=== PATIENT | female | born 1935 | race Caucasian/White ===

== ENCOUNTER 2016-07-03 09:48 | Emergency (ER) | payer MEDICARE, MEDICAID ==
[2016-07-03 11:32] LABS: Hematocrit 39 % (35-47); Hemoglobin 12.9 g/dl (12.0-16.0); Mean Corpuscular HGB Conc 33 g/dl (31-36); Mean Corpuscular Hemoglobin 31 pg (27-31); Mean Corpuscular Volume 94 fL (80-97); Mean Platelet Volume 8 um3 (7.4-10.4); Red Cell Distribution Width 13 % (10.5-15); White Blood Count 7.1 10^3/ul (3.5-10.8)
[2016-07-03 11:44] LABS: Albumin 3.8 g/dL (3.2-5.2); BUN/Creatinine Ratio 15.2 (8-20); Calcium 9.6 mg/dL (8.6-10.3); EGFR African American 110.5 (>60); Globulin 2.9 g/dL (2-4); Total Bilirubin 0.7 mg/dL (0.2-1.0); Total Protein 6.7 g/dL (6.4-8.9)
[2016-07-03 11:46] LABS: Troponin I 0.01 ng/mL (<0.04)
[2016-07-03 11:53] LABS: TSH (Thyroid Stimulating Horm) 2.49 mcIU/mL (0.34-5.60)
[2016-07-03 12:54] LABS: Potassium 3.9 mmol/L (3.5-5.0)
[2016-07-03 14:56] VITALS: BP 132/87
--- NOTE | 2016-07-04 07:50 | ED ---
Tad Salvador Adam, scribed for Jonathan Franklin MD on 07/03/16 at 1101 . Syncope/Near Syncope - HPI Summary HPI Summary: Pt is an 81 year old female presenting with an episode of near-syncope this morning. She states that she was standing in her kitchen when she suddenly began to feel nauseous and dizzy. She felt as if she was going to pass out so she went and sat down on the couch. She continued to feel lightheaded and she was experiencing SOB as well, so she decided to call EMS. Pt states that she has not eaten anything since 17:00 yesterday. She also c/o right knee pain that has been bothering her daily but was not any worse this morning. PMHx of spinal stenosis, sciatica, and basal cell removal. Positive Hx of smoking. - History Of Current Complaint Chief Complaint: EDSyncope Time Seen by Provider: 07/03/16 10:36 Hx Obtained From: Patient Onset/Duration: Sudden Onset, Lasting Hours, Still Present Timing: Constant Context: Unwitnessed Activity At Onset: At Rest - Standing in kitchen Associated Head Trauma: No Aggravating Factor(s): Nothing Alleviating Factor(s): Nothing Associated Signs And Symptoms: Lightheadedness, Shortness Of Breath, Other - Nausea - Allergies/Home Medications Allergies/Adverse Reactions: Allergies Allergy/AdvReac Type Severity Reaction Status Date / Time Erythromycin Allergy Severe Nausea Verified 09/29/14 11:26 Penicillins [PCN] Allergy Intermediate Rash Verified 09/29/14 11:26 Sulfa Drugs Allergy Intermediate Vomiting Verified 09/29/14 11:26 PMH/Surg Hx/FS Hx/Imm Hx Endocrine/Hematology History: Denies: Hx Diabetes Cardiovascular History: Denies: Hx Hypertension, Hx Pacemaker/ICD Musculoskeletal History: Denies: Hx Rheumatoid Arthritis, Hx Osteoporosis Sensory History: Denies: Hx Hearing Aid Psychiatric History: Denies: Hx Panic Disorder - Cancer History Hx Chemotherapy: No Hx Radiation Therapy: No - Surgical History Surgery Procedure, Year, and Place: BASAL CELL REMOVED Infectious Disease History: No Infectious Disease History: Denies: Traveled Outside the [place] in Last 30 Days - Family History Known Family History: Positive: Other - Negative FMHx of breast CA - Social History Occupation: Retired Lives: With Family - Male friend Alcohol Use: None Hx Substance Use: No Substance Use Type: Reports: None Hx Tobacco Use: Yes Smoking Status (MU): Former Smoker Review of Systems Constitutional: Negative Negative: Fever Positive: Shortness Of Breath Positive: Nausea Positive: Arthralgia - Right knee Neurological: Other - Dizziness/lightheadedness Positive: Syncope - Near (no LOC) All Other Systems Reviewed And Are Negative: Yes Physical Exam Triage Information Reviewed: Yes Vital Signs On Initial Exam: Initial Vitals Temp Pulse Resp BP Pulse Ox 98.7 F 78 16 139/123 98 07/03/16 10:03 07/03/16 10:03 07/03/16 10:03 07/03/16 10:03 07/03/16 10:03 Vital Signs Reviewed: Yes Appearance: Positive: Well-Appearing, No Pain Distress Skin: Positive: Warm, Skin Color Reflects Adequate Perfusion, Dry Head/Face: Positive: Normal Head/Face Inspection Eyes: Positive: Normal ENT: Positive: Normal ENT inspection Neck: Positive: Supple, Nontender Respiratory/Lung Sounds: Positive: Clear to Auscultation, Breath Sounds Present Cardiovascular: Positive: RRR Abdomen Description: Positive: Nontender, Soft Bowel Sounds: Positive: Present Musculoskeletal: Positive: Normal Neurological: Positive: Normal Psychiatric: Positive: Normal, Affect/Mood Appropriate - [place] Coma Scale Coma Scale Total: 15 Diagnostics - Vital Signs Vital Signs Temp Pulse Resp BP Pulse Ox 07/03/16 10:03 98.7 F 78 16 139/123 98 - Laboratory Lab Results: Lab Results 07/03/16 07/03/16 07/03/16 Range/Units 10:15 10:15 10:15 WBC 7.1 (3.5-10.8) 10^3/ul RBC 4.20 (4.0-5.4) 10^6/ul Hgb 12.9 (12.0-16.0) g/dl Hct 39 (35-47) % MCV 94 (80-97) fL MCH 31 (27-31) pg MCHC 33 (31-36) g/dl RDW 13 (10.5-15) % Plt Count 171 (150-450) 10^3/ul MPV 8 (7.4-10.4) um3 Neut % (Auto) 79.5 (38-83) % Lymph % (Auto) 11.3 L (25-47) % [place] % (Auto) 8.4 (1-9) % Eos % (Auto) 0.5 (0-6) % Baso % (Auto) 0.3 (0-2) % Absolute Neuts (auto) 5.6 (1.5-7.7) 10^3/ul Absolute Lymphs (auto) 0.8 L (1.0-4.8) 10^3/ul Absolute Monos (auto) 0.6 (0-0.8) 10^3/ul Absolute Eos (auto) 0 (0-0.6) 10^3/ul Absolute Basos (auto) 0 (0-0.2) 10^3/ul Absolute Nucleated RBC 0.01 10^3/ul Nucleated RBC % 0.2 Sodium 136 (133-145) mmol/L Potassium 3.9 (3.5-5.0) mmol/L Chloride 104 (101-111) mmol/L Carbon Dioxide 24 (22-32) mmol/L Anion Gap 8 (2-11) mmol/L BUN 10 (6-24) mg/dL Creatinine 0.66 (0.51-0.95) mg/dL Est GFR ( Amer) 110.5 (>60) Est GFR (Non-Af Amer) 86.0 (>60) BUN/Creatinine Ratio 15.2 (8-20) Glucose 106 H (70-100) mg/dL Lactic Acid 1.6 (0.5-2.0) mmol/L Calcium 9.6 (8.6-10.3) mg/dL Magnesium 2.0 (1.9-2.7) mg/dL Total Bilirubin 0.70 (0.2-1.0) mg/dL AST 26 (13-39) U/L ALT 16 (7-52) U/L Alkaline Phosphatase 78 (34-104) U/L Troponin I 0.01 (<0.04) ng/mL Total Protein 6.7 (6.4-8.9) g/dL Albumin 3.8 (3.2-5.2) g/dL Globulin 2.9 (2-4) g/dL Albumin/Globulin Ratio 1.3 (1-3) TSH 2.49 (0.34-5.60) mcIU/mL Result Diagrams: 07/03/16 10:15 07/03/16 10:15 Lab Statement: Any lab studies that have been ordered have been reviewed, and results considered in the medical decision making process. - EKG 10:09 Cardiac Rate: NL - 71 BPM EKG Rhythm: Sinus Rhythm EKG Interpretation: Nonspecific changes EKG Comparison: No Significant Change - From 09/29/14 - Additional Comments Diagnostic Additional Comments: Troponin I - 0.01 Course/Dx Course Of Treatment: Bria Barrientos presented with a C/O a near syncopal epsiode. She has had many in the past and has been diagnosed with vasovagal syncope. This morning she felt a little SOB with the episode so she called EMS to have some O2. They recommended she come here to be checked out and she reluctantly agreed. Her iniitial W/U and monitorig were negative and after she ate she felt much improved and refused to stay for a second troponin. She will be discharged. - Diagnoses Provider Diagnoses: Vasovagal near-syncope Discharge - Discharge Plan Condition: Stable Disposition: HOME Patient Education Materials: Near Syncope (ED) Referrals: Thea Kuo MD [Primary Care Provider] - Additional Instructions: Follow up with Dr. Kuo. The documentation as recorded by the Tad jones Adam accurately reflects the service I personally performed and the decisions made by me, Jonathan Franklin MD.
== END 2016-07-03 14:34 | disposition home or self-care (01) ==
LOC: ED 09:48
DX: R55 Syncope and collapse (principal); R42 Dizziness and giddiness; R06.02 Shortness of breath; R11.0 Nausea; Z87.891 Personal history of nicotine dependence
CPT/HCPCS: 36415; 80053; 83605; 83735; 84443; 84484; 85025; 93005; 99282

== ENCOUNTER 2016-09-01 10:49 | Observation (INO) | payer MEDICARE, MEDICAID ==
[2016-09-01] MEDS ORDERED: Aspirin Low Dose CHEW TAB* 81 MG PO ONE (11:20)
[2016-09-01 12:13] LABS: Hematocrit 40 % (35-47); Mean Corpuscular HGB Conc 33 g/dl (31-36); Mean Corpuscular Hemoglobin 31 pg (27-31); Mean Corpuscular Volume 93 fL (80-97); Mean Platelet Volume 7 um3 (7.4-10.4); Red Blood Count 4.26 10^6/ul (4.0-5.4); Red Cell Distribution Width 13 % (10.5-15); White Blood Count 4.3 10^3/ul (3.5-10.8)
--- NOTE | 2016-09-01 12:14 | RAD ---
HISTORY: Shortness of breath COMPARISONS: September 29, 2014 VIEWS:1: Single frontal portable view of the chest at 11:50 AM FINDINGS: LINES AND TUBES: None. CARDIOMEDIASTINAL SILHOUETTE: The cardiomediastinal silhouette is normal for portable technique. PLEURA: The costophrenic angles are sharp. No pleural abnormalities are noted. LUNG PARENCHYMA: The lungs are clear. ABDOMEN: The upper abdomen is clear. There is no subphrenic gas. BONES AND SOFT TISSUES: No bone or soft tissue abnormalities are noted. IMPRESSION: NO ACTIVE CARDIOPULMONARY DISEASE.
[2016-09-01 12:29] LABS: Albumin 4.1 g/dL (3.2-5.2); EGFR African American 114.5 (>60); EGFR Non-African American 89.1 (>60); Globulin 2.7 g/dL (2-4); Potassium 3.7 mmol/L (3.5-5.0); Total Bilirubin 0.5 mg/dL (0.2-1.0); Total Protein 6.8 g/dL (6.4-8.9)
[2016-09-01 13:05] LABS: BUN/Creatinine Ratio 17.2 (8-20)
[2016-09-01] MEDS ORDERED: Aspirin TAB* 325 MG PO ONE (13:16)
[2016-09-01 14:13] LABS: Urine Bacteria 1+ (Absent); Urine Bilirubin Negative (Negative); Urine Glucose Negative (Negative); Urine Nitrite Positive (Negative)
[2016-09-01] MEDS ORDERED: cefTRIAXone(*) 1 GM in NS 0.9% 50 ML* 50 ML IVPB ONE (14:31)
[2016-09-01] MEDS ORDERED: NS 0.9% 1000 ML* 1,000 ML IV ONE (14:31)
[2016-09-01] MEDS ORDERED: Haloperidol INJ IV/IM* 5 MG/ML AMP ONE (14:37)
[2016-09-01] MEDS ORDERED: Haloperidol INJ IV/IM* 5 MG/ML AMP IM ONE (14:37)
[2016-09-01] MEDS ORDERED: Haloperidol INJ IV/IM* 5 MG/ML AMP IV SLOW PU PRN (15:58)
[2016-09-01] MEDS ORDERED: Acetaminophen TAB* 325 MG PO PRN (15:58)
--- NOTE | 2016-09-01 18:32 | ED ---
Augusto Salvador Matthew, scribed for Andrés Siegel MD on 09/01/16 at 1319 . HPI Chest Pain - HPI Summary HPI Summary: An 81 y/o female presents to the ED left sided chest pain since 08:30 this morning. Associated symptoms include left arm pain and increased frequency. The patient denies dizziness, lightheadedness, and dysuria. She has Hx of syncopal spells. No PMHx of HTN, Diabetes and she has possible HLD. The patient does no smoke. She states that she exercises daily. The patient feels fine currently and takes an aspirin daily. - History of Current Complaint Chief Complaint: EDShortnessOfBreath Time Seen by Provider: 09/01/16 11:20 Hx Obtained From: Patient Initial Severity: Moderate Current Severity: Moderate Pain Intensity: 5 Pain Scale Used: 0-10 Numeric Chest Pain Radiates: No Character: Other: - prickling Associated Signs and Symptoms: Positive: Chest Pain, Other: - left arm pain; increased frequency. Negative: Dizziness, Lightheadedness - Allergy/Home Medications Allergies/Adverse Reactions: Allergies Allergy/AdvReac Type Severity Reaction Status Date / Time Erythromycin Allergy Severe Nausea Verified 09/29/14 11:26 Penicillins [PCN] Allergy Intermediate Rash Verified 09/29/14 11:26 Sulfa Drugs Allergy Intermediate Vomiting Verified 09/29/14 11:26 Home Medications: Home Medications Aspirin EC Low Dose* [Ecotrin EC Low Dose 81 MG*] 81 mg PO DAILY 09/01/16 [ History Confirmed 09/01/16] Mirtazapine TAB* [Remeron TAB*] 15 mg PO BEDTIME 09/01/16 [History Confirmed ] PMH/Surg Hx/FS Hx/Imm Hx Endocrine/Hematology History: Denies: Hx Diabetes Cardiovascular History: Denies: Hx Hypertension, Hx Pacemaker/ICD Musculoskeletal History: Denies: Hx Rheumatoid Arthritis, Hx Osteoporosis Sensory History: Denies: Hx Hearing Aid Psychiatric History: Denies: Hx Panic Disorder - Cancer History Hx Chemotherapy: No Hx Radiation Therapy: No - Surgical History Surgery Procedure, Year, and Place: BASAL CELL REMOVED Infectious Disease History: No Infectious Disease History: Denies: Traveled Outside the [place] in Last 30 Days - Family History Known Family History: Positive: Other - Negative FMHx of breast CA - Social History Alcohol Use: None Hx Substance Use: No Substance Use Type: Reports: None Hx Tobacco Use: Yes Smoking Status (MU): Former Smoker Review of Systems Constitutional: Negative Negative: Fever, Chills Eyes: Negative Negative: Erythema ENT: Negative Negative: Sore Throat Positive: Chest Pain Positive: Shortness Of Breath Gastrointestinal: Negative Negative: Abdominal Pain, Vomiting, Nausea Positive: frequency - increased . Negative: dysuria Musculoskeletal: Negative Negative: Myalgia, Edema Skin: Negative Negative: Rash Neurological: Negative Negative: Headache, Numbness Psychological: Normal All Other Systems Reviewed And Are Negative: Yes Physical Exam - Summary Physical Exam Summary: It was noted that the patient had foul smelling urine. Triage Information Reviewed: Yes Vital Signs On Initial Exam: Initial Vitals Temp Pulse Resp BP Pulse Ox 98.7 F 83 18 139/81 95 09/01/16 10:56 09/01/16 10:56 09/01/16 10:56 09/01/16 10:56 09/01/16 10:56 Vital Signs Reviewed: Yes Appearance: Positive: Well-Appearing, No Pain Distress Skin: Positive: Warm, Dry Head/Face: Positive: Other - Normocephalic; Atraumatic Eyes: Positive: Conjunctiva Clear Neck: Positive: No Lymphadenopathy, Other: - Full ROM, NO JVD Respiratory/Lung Sounds: Positive: Breath Sounds Present, Other - Normal Effort. Negative: Rales, Rhonchi, Stridor, Tracheal Deviation, Wheezes Cardiovascular: Positive: RRR, Pulses are Symmetrical in both Upper and Lower Extremities Abdomen Description: Positive: Nontender, Soft, Other: - No Rebound. Negative: Distended, Guarding Bowel Sounds: Positive: Present Musculoskeletal: Negative: Edema Left, Edema Right Neurological: Positive: Alert, Oriented to Person Place, Time Psychiatric: Positive: Affect/Mood Appropriate - [place] Coma Scale Coma Scale Total: 15 Diagnostics - Vital Signs Vital Signs Temp Pulse Resp BP Pulse Ox 09/01/16 12:00 79 16 96 09/01/16 11:30 77 19 137/68 98 09/01/16 11:13 88 95 09/01/16 11:10 128/61 09/01/16 10:56 98.7 F 83 18 139/81 95 - Laboratory Lab Results: Lab Results 09/01/16 09/01/16 Range/Units 12:00 12:00 WBC 4.3 (3.5-10.8) 10^3/ul RBC 4.26 (4.0-5.4) 10^6/ul Hgb 13.0 (12.0-16.0) g/dl Hct 40 (35-47) % MCV 93 (80-97) fL MCH 31 (27-31) pg MCHC 33 (31-36) g/dl RDW 13 (10.5-15) % Plt Count 169 (150-450) 10^3/ul MPV 7 L (7.4-10.4) um3 Neut % (Auto) 73.9 (38-83) % Lymph % (Auto) 15.3 L (25-47) % [place] % (Auto) 9.6 H (1-9) % Eos % (Auto) 0.7 (0-6) % Baso % (Auto) 0.5 (0-2) % Absolute Neuts (auto) 3.2 (1.5-7.7) 10^3/ul Absolute Lymphs (auto) 0.7 L (1.0-4.8) 10^3/ul Absolute Monos (auto) 0.4 (0-0.8) 10^3/ul Absolute Eos (auto) 0 (0-0.6) 10^3/ul Absolute Basos (auto) 0 (0-0.2) 10^3/ul Absolute Nucleated RBC 0 10^3/ul Nucleated RBC % 0 Sodium Pending Potassium 3.7 (3.5-5.0) mmol/L Chloride 103 (101-111) mmol/L Carbon Dioxide 28 (22-32) mmol/L Anion Gap Pending BUN Pending Creatinine 0.64 (0.51-0.95) mg/dL Est GFR ( Amer) 114.5 (>60) Est GFR (Non-Af Amer) 89.1 (>60) BUN/Creatinine Ratio Pending Glucose 102 H (70-100) mg/dL Calcium 10.0 (8.6-10.3) mg/dL Total Bilirubin 0.50 (0.2-1.0) mg/dL AST 17 (13-39) U/L ALT 11 (7-52) U/L Alkaline Phosphatase 62 (34-104) U/L Troponin I 0.00 (<0.04) ng/mL Total Protein 6.8 (6.4-8.9) g/dL Albumin 4.1 (3.2-5.2) g/dL Globulin 2.7 (2-4) g/dL Albumin/Globulin Ratio 1.5 (1-3) Result Diagrams: 09/01/16 12:00 09/01/16 12:00 Lab Statement: Any lab studies that have been ordered have been reviewed, and results considered in the medical decision making process. - Radiology CXR Xray Interpretation: No Acute Changes - IMPRESSION: NO ACTIVE CARDIOPULMONARY DISEASE. Radiology Interpretation Completed By: Radiologist - EKG 11:24 Cardiac Rate: NL - 77 bpm EKG Rhythm: Sinus Rhythm EKG Interpretation: NO STEMI Re-Evaluation - Re-Evaluation First Eval Re-Evaluation Time: 14:06 Comment: The patient is making paranoid statements about staying in the hospital , which include someone influential in the city of [place] will come and kill her in the hospital. Chest Pain Course/Dx - Course Assessment/Plan: The patient is placed on medical hold as she is demonstrating paranoid behaving and has an inability to make clear medical judgments. I discussed the case with [facility] and they will evaluate after her acute medical condition of UTI is resolved. - Diagnoses Provider Diagnoses: chest pain unspecified r/o TN, Paranoid delusion, UTI (urinary tract infection) , Delirium - Provider Notifications Discussed Care Of Patient With: Dr. Waite (Hospitalist) at 14:41 -- Notified of paitent's history and will consult on the patient. Discharge - Discharge Plan Condition: Stable Disposition: ADMITTED TO [facility] The documentation as recorded by the Augusto jones Matthew accurately reflects the service I personally performed and the decisions made by me, Andrés Siegel MD.
[2016-09-01] MEDS ORDERED: Mirtazapine TAB* 15 MG PO SCH (21:00)
[2016-09-01] MEDS: Heparin VIAL(*) 5000 UNITS/ML VIAL (FIVE THOUSAND) SUBCUT SCH (21:42)
--- NOTE | 2016-09-02 00:36 | HP ---
HISTORY AND PHYSICAL: DATE OF ADMISSION: 09/01/16 PRIMARY CARE PROVIDER: Dr. Thea Kuo. CHIEF COMPLAINT: Arm pain and shortness of breath. HISTORY OF PRESENT ILLNESS: Ms. Barrientos is an 81-year-old female who has a history of hyperlipidemia, but is only on aspirin 81 mg p.o. daily, who presents to the emergency room with complaints of left arm discomfort and shortness of breath. The patient states that she went to bed, she slept well. She got up and felt that she was having left arm discomfort and shortness of breath. She also describes the arm discomfort as tingling. She states that lasted for approximately 2 hours. She does not really elaborate on this very much, as she is upset that we are asking her to stay in the hospital. The patient, in the emergency room, initially refused to stay for evaluation of her arm discomfort and shortness of breath and was going to be discharged against medical advice; however, the patient then became very agitated, having paranoid delusions, stating that if she were to be admitted that someone will come to the hospital and kill her. At that point, the ER provider placed on her one-to- one monitor. A urinalysis was obtained due to concerns of the paranoid delusions. She was found to have evidence of urinary tract infection. The patient denies any signs of UTI including dysuria or cloudy urine. She states that she has not noticed a foul smell; however, this has been noticed by the ER staff. The patient was seen by a mental health senior geotechnical engineer, who felt that the patient did have paranoid delusions; however, it was not clear if this was related to her urinary tract infection and therefore, I was asked to consult on the patient for potential admission. I evaluated the patient and she again stated that she was not going to stay; however, after a conversation with Psychiatry about the paranoid delusions and her current state, it was decided that she did not have capacity to leave the emergency room against medical advice and therefore was being admitted to the hospital. When I explained this to her, she reluctantly agreed and has agreed to stay in the hospital. PAST MEDICAL HISTORY: Hyperlipidemia. PAST SURGICAL HISTORY: None. MEDICATIONS: 1. Aspirin 81 mg p.o. daily. 2. Remeron 15 mg p.o. q.h.s. ALLERGIES: PENICILLIN, ERYTHROMYCIN, SULFA caused upset stomach. FAMILY HISTORY: Mom of stomach cancer. Dad at age of 49 of an VT. SOCIAL HISTORY: The patient is a nonsmoker currently, but quit in 1984. She denies any alcohol use. She was an warehouse administrative assistant. She is not . She has no children. She indicates her niece, Suha Duron, will be her surrogate decision maker; however, this niece's contact information is not in the computer system. REVIEW OF SYSTEMS: The patient denies any fevers, chills, or anorexia. No chest pain, no palpitations. She has chronic right leg swelling that she states is related to needing a knee replacement. She denies any cough. She admits to the shortness of breath as above. No nausea, vomiting, or diarrhea. She states that she has some mild midline abdominal tenderness. No hematochezia , no hematuria, no dysuria. No focal weakness or sensory loss. No sudden changes in vision. No dysphagia. No joint pains or muscle pains out of ordinary. No rashes. No anxiety or depression. PHYSICAL EXAMINATION GENERAL: The patient is a well-developed elderly female, sitting in the stretcher, in no acute distress. VITAL SIGNS: Blood pressure 125/76, pulse 95, respirations 16, temp 98.7, O2 sat 98% on room air. HEENT: Pupils are equal, they are round, they react to light. Extraocular muscles are intact. Oropharynx is clear. Oral mucosa is moist. There is no submandibular, cervical, or supraclavicular adenopathy. NECK: Thyroid is not enlarged. No thyroid nodules are noted. PULMONARY: Lungs are clear to auscultation bilaterally. CARDIAC: Normal S1, S2. Regular rate and rhythm. I do not appreciate any murmurs. There is no lower extremity edema. ABDOMEN: Bowel sounds present. Abdomen is soft, nontender, nondistended. MUSCULOSKELETAL: There is no cyanosis or clubbing of the digits. There is full active range of motion of all 4 extremities. NEURO: Cranial nerves II through XII are grossly intact. Sensation is intact to light touch throughout. PSYCH: The patient is alert, she is oriented x3. She states that she will not go into the reasons for which she does not want to be admitted to the hospital. She does, however, state that a boyfriend from her teenage years could potentially want to find out where she is to "put her in the ground." The patient makes a few other paranoid statements to me, but in general, is intact mentally. Friend in the room states that her mental status is pretty much at baseline. Friend also states that from [id number], she will make paranoid statements like this. SKIN: Warm and dry. There are no rashes. DIAGNOSTIC STUDIES/LAB DATA: WBC 4.3, hemoglobin 13.0, hematocrit 40, platelets 169. Sodium 139, potassium 3.7, chloride 103, CO2 28, BUN 11, creatinine 0.64, glucose 102, lactic acid 1.0, calcium 10.0. Bilirubin 0.5, AST 17, ALT 11, alk phos 62. Troponin 0. Albumin 4.1. Urinalysis reveals a specific gravity of 1.008, trace ketones, positive nitrites, positive leukocyte esterase, 1+ wbc, 1+ bacteria. Chest x-ray: No active cardiopulmonary disease. EKG reveals normal sinus rhythm with prolonged MS interval, but no acute ST-T wave abnormalities. ASSESSMENT AND PLAN: Ms. Barrientos is an 81-year-old female with a history of hyperlipidemia, who presented initially to the emergency room with complaints of left arm discomfort and shortness of breath, then began to have paranoid delusions and found to have urinary tract infection. 1. Left arm discomfort and shortness of breath. The patient will be ruled out for an myocardial infarction. Her symptoms resolved just in a couple of hours. She has risk factors for coronary artery disease including her age and her hyperlipidemia. The patient's story is not the greatest; however, we will rule her out and obtain a nuclear stress test tomorrow. The patient states that she has been seen by Dr. Drew in the outpatient setting and the plan was to do an outpatient stress test. We will get this done while she is in the hospital. 2. Urinary tract infection. The patient's urinalysis is remarkably abnormal and her urine reportedly smells foul. She will be continued on ceftriaxone while awaiting her urine culture. 3. Hyperlipidemia. The patient is not on treatment for this. This can be followed as an outpatient. 4. DVT prophylaxis. According to the Adult Thrombosis Prophylaxis Risk Factor Assessment Guide, the patient has a total risk factor score of 3 making her high risk. She will be placed on heparin 5000 units subcutaneous q.8 hours. 5. Code status is full. TIME SPENT: Sixty-five minutes was spent admitting this patient. CC: Dr. Thea Kuo* [id number] #: [id number] MTDD
[2016-09-02] MEDS: Heparin VIAL(*) 5000 UNITS/ML VIAL (FIVE THOUSAND) SUBCUT SCH ×2 (05:03→06:11)
[2016-09-02] MEDS ORDERED: Aspirin EC Low Dose* 81 MG TAB.EC PO SCH (09:00)
--- NOTE | 2016-09-02 11:10 | PN ---
Subjective Date of Service: 09/02/16 Interval History: Pt is feeling well. She denies any pain or SOB. Last night she was having issues with urination and had a barksdale placed. She is awaiting the second part of her stress test. Objective Active Medications: Acetaminophen (Tylenol Tab*) 650 mg PO Q4H PRN PRN Reason: PAIN Aspirin (Aspirin Ec Low Dose*) 81 mg PO DAILY [facility] Last Admin: 09/02/16 09:11 Dose: 81 mg Haloperidol Lactate (Haldol Inj Iv/Im*) 2 mg IV SLOW PU Q6H PRN PRN Reason: AGITATION Heparin Sodium (Porcine) (Heparin Vial(*)) 5,000 units SUBCUT Q8HR [facility] Last Admin: 09/02/16 06:11 Dose: 5,000 units Ceftriaxone Sodium 1,000 mg/ (Sodium Chloride) 50 mls @ 200 mls/hr IVPB Q24H [facility] Mirtazapine (Remeron Tab*) 15 mg PO BEDTIME [facility] Last Admin: 09/01/16 21:42 Dose: 15 mg Vital Signs 09/01/16 09/01/16 09/01/16 14:20 14:49 14:50 Temperature 99.2 F Pulse Rate 106 111 108 Respiratory 18 Rate Blood Pressure 157/98 165/131 (mmHg) O2 Sat by Pulse 98 94 98 Oximetry 09/01/16 09/01/16 09/01/16 14:51 17:00 17:23 Temperature 98.7 F 97.8 F Pulse Rate 113 95 99 Respiratory 16 20 Rate Blood Pressure 125/76 129/60 (mmHg) O2 Sat by Pulse 97 98 99 Oximetry 09/01/16 09/01/16 09/02/16 19:58 23:49 03:53 Temperature 97.6 F 97.1 F 97.9 F Pulse Rate 99 97 97 Respiratory 20 20 Rate Blood Pressure 121/68 146/69 140/72 (mmHg) O2 Sat by Pulse 98 96 97 Oximetry 09/02/16 09/02/16 07:29 08:12 Temperature 99.0 F Pulse Rate 82 90 Respiratory 16 Rate Blood Pressure 81/65 137/69 (mmHg) O2 Sat by Pulse 96 97 Oximetry Oxygen Devices in Use Now: None Appearance: Elderly female sitting up in bed, NAD Eyes: No Scleral Icterus Ears/Nose/Mouth/Throat: Mucous Membranes Moist Respiratory: Symmetrical Chest Expansion and Respiratory Effort, Clear to Auscultation Cardiovascular: NL Sounds; No Murmurs; No JVD, RRR, No Edema Abdominal: NL Sounds; No Tenderness; No Distention Extremities: No Clubbing, Cyanosis Skin: No Rash or Ulcers, No Nodules or Sclerosis Neurological: Alert and Oriented x 3, - - no paranoid delusions noted at the time of my visit Result Diagrams: 09/01/16 12:00 09/01/16 12:00 Additional Lab and Data: Lab Results 09/01/16 09/01/16 Range/Units 12:00 12:00 WBC 4.3 (3.5-10.8) 10^3/ul RBC 4.26 (4.0-5.4) 10^6/ul Hgb 13.0 (12.0-16.0) g/dl Hct 40 (35-47) % MCV 93 (80-97) fL MCH 31 (27-31) pg MCHC 33 (31-36) g/dl RDW 13 (10.5-15) % Plt Count 169 (150-450) 10^3/ul MPV 7 L (7.4-10.4) um3 Neut % (Auto) 73.9 (38-83) % Lymph % (Auto) 15.3 L (25-47) % [place] % (Auto) 9.6 H (1-9) % Eos % (Auto) 0.7 (0-6) % Baso % (Auto) 0.5 (0-2) % Absolute Neuts (auto) 3.2 (1.5-7.7) 10^3/ul Absolute Lymphs (auto) 0.7 L (1.0-4.8) 10^3/ul Absolute Monos (auto) 0.4 (0-0.8) 10^3/ul Absolute Eos (auto) 0 (0-0.6) 10^3/ul Absolute Basos (auto) 0 (0-0.2) 10^3/ul Absolute Nucleated RBC 0 10^3/ul Nucleated RBC % 0 Sodium Pending Potassium 3.7 (3.5-5.0) mmol/L Chloride 103 (101-111) mmol/L Carbon Dioxide 28 (22-32) mmol/L Anion Gap Pending BUN Pending Creatinine 0.64 (0.51-0.95) mg/dL Est GFR ( Amer) 114.5 (>60) Est GFR (Non-Af Amer) 89.1 (>60) BUN/Creatinine Ratio Pending Glucose 102 H (70-100) mg/dL Calcium 10.0 (8.6-10.3) mg/dL Total Bilirubin 0.50 (0.2-1.0) mg/dL AST 17 (13-39) U/L ALT 11 (7-52) U/L Alkaline Phosphatase 62 (34-104) U/L Troponin I 0.00 (<0.04) ng/mL Total Protein 6.8 (6.4-8.9) g/dL Albumin 4.1 (3.2-5.2) g/dL Globulin 2.7 (2-4) g/dL Albumin/Globulin Ratio 1.5 (1-3) Assess/Plan/Problems-Billing Ms Barrientos is an 81 yo F who has a h/o hyperlipidemia who presented to the ER with c/o left arm discomfort and SOB and then began to have paranoid delusions in the ER and was found to have a UTI. - Patient Problems (1) UTI (urinary tract infection) Current Visit: Yes Status: Acute Comment: The patient's urine culture is pending. Continue ceftriaxone for now. Last night she had urinary frequency/? urinary retention. Remove the barksdale now and monitor for signs of retention. Will need follow up post void bladder scan. (2) Paranoid delusion Current Visit: Yes Status: Acute Code(s): F22 - DELUSIONAL DISORDERS SNOMED Code(s): 472998 Comment: ? short lived delirium secondary to UTI. She is improved today. Psychiatry saw the patient. Await consultation report. (3) Left arm pain Current Visit: Yes Status: Acute Code(s): M79.602 - PAIN IN LEFT ARM SNOMED Code(s): 665803037 Comment: The patient has been ruled out for DE and is in the process of completing a chemical nuclear stress test. Await results of the stress test. (4) Hyperlipidemia Current Visit: Yes Status: Acute Code(s): E78.5 - HYPERLIPIDEMIA, UNSPECIFIED SNOMED Code(s): 69393194 Comment: Follow up as an outpatient. (5) DVT prophylaxis Current Visit: Yes Status: Acute Code(s): ZVP1079 - SNOMED Code(s): 195142023 Comment: SQ heparin (6) Full code status Current Visit: Yes Status: Acute Code(s): Z78.9 - OTHER SPECIFIED HEALTH STATUS SNOMED Code(s): 804432091
[2016-09-02 11:41] VITALS: BP 112/61
--- NOTE | 2016-09-02 13:10 | CONS ---
CONSULTATION REPORT: DATE OF CONSULT: REQUESTING PHYSICIAN: Nithya Waite DO CONSULTATION QUESTION: As Ms. Barrinetos had stated that she was concerned that somebody would come to the hospital and kill her were she to be admitted, Dr. Waite was concerned as to whether the patient might have continued psychotic symptoms needing treatment. HISTORY OF PRESENT ILLNESS: Ms. Barrientos came into the hospital with report of left arm discomfort and shortness of breath. She was also found to have signs of UTI. She reported during her evaluation that she did not want to be admitted to the hospital. She gave as the reason that she was concerned that somebody she knew in childhood was out to get her and would find her here and would kill her here. When I spoke with Ms. Barrientos, she had no recollection of having made that statement. She had her wits clearly about her, was pleasant and well engaged in the interview. She was alert and oriented to person, place, time and situation. She showed no signs of deficits in memory, cognition or attention. She denied any auditory or visual hallucinations or paranoid ideations. She denied any suicidal or homicidal ideation. She reports that she is agreeable to continued treatment at this time. She does concede that she might have had these thoughts and forgotten them in the course of altered mental status due to her UTI. She does report a history of frequent UTIs in the past, but has gone for about the past 2 years, she says without one. She reports a history of treatment for depression when her fianc when she was living in [place]. She reports that she did see a psychotherapist at that time. She denies ever any psychiatric hospitalizations. She denies ever any previous episodes of anything that would be considered to be psychotic in any way. She does report her only medication trial psychiatrically has been Remeron that was started in 1998 and that she has been using it since then, currently at a dose of 30 mg, but considering reduction in dose due to my discussion with her and the possibility of induction of noradrenergic tone at higher doses impeding its effect for aiding sleep onset through antihistaminergic effects. MENTAL STATUS EXAMINATION: As noted above. She denied any auditory or visual hallucinations, paranoid ideations, suicidal or homicidal ideations. She reports her mood is "fine" with a very pleasant and well-engaged affect. She is alert and oriented to person, place, time, and situation. She has a linear and goal directed thought process. She has grooming and hygiene adequate to the setting. She makes good eye contact. Her speech has regular rate, rhythm, and volume. Overall, she presents as very well engaged and in fact charming. 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 Had been told by Dr. Prather in the [facility] ED in the past that she had some deficits in right kidney function. Also reports having a history of frequent UTIs. SOCIAL HISTORY: The patient reports that she was born in [place], that the family moved to [place]. 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 She moved to this area in 2007 to be with her sister who in a prison in [place]. She has one other sibling, a brother who in 2005 after undergoing a complete colectomy secondary to a colon cancer. She reports that the person that she is closest with now is a niece in [place], [place]. She lives alone. SUBSTANCE ABUSE HISTORY: The patient denies any abuse of substances currently or previously. REVIEW OF SYSTEMS: Please refer to ongoing documentation on the medical floor for complete report. PHYSICAL EXAM: Please refer to ongoing documentation on the medical floor for complete report. DIAGNOSTIC STUDIES/LAB DATA: Please refer to ongoing documentation on the medical floor for complete report. Laboratory values obtained noon yesterday found comprehensive metabolic panel entirely within normal limits aside from a glucose that was mildly elevated to 102. CBC with differential had only very mild excursions with a low MPV to 7, low lymphocyte percentage to 15.3, high monocyte percentage to 9.6, and low absolute lymphocyte count of 0.7. Urinalysis had a specific gravity of 1.008, trace ketones, positive for nitrites, 2+ leukocyte esterase, and other indications of UTI. ASSESSMENT AND RECOMMENDATIONS: Ms. Barrientos reports that she has no recollection of having made statements about concerns that someone would come here to kill her. She does concede that it is possible that she was not thinking clearly due to the urinary tract infection and did make these statements. In any case, at this point she is very pleasant and well engaged with no signs of any deficits in her thought process and stating that she has no delusions or paranoia of any sort. She does not have any history of psychotic illness, only treatment for a depressive episode related to loss of her fianc years ago. She presents as a very healthy 81-year-old woman who has clear thinking and appears to be recovering from whatever metabolic insult it may have been that led to some temporary derailment of her thinking during the course of her evaluation in the emergency department. I have no recommendation for treatment insofar, as she does not give any report of symptoms requiring treatment at this point. DIAGNOSES: Brief delirium, currently resolved. [id number]/[facility] #: [id number] GIANCARLO
--- NOTE | 2016-09-02 13:39 | RAD ---
Edited for charges. INDICATION: Chest pain, evaluate for ischemia. COMPARISON: There are no prior studies available for comparison. Technique: A single day myocardial perfusion stress study was performed. Initially the resting study was performed. The patient was given an intravenous injection of 10.8 mCi of technetium 99m tetrofosmin and and the heart was imaged in multiple projections. The patient returned later in the day and under the direction of Dr. De La Vega, the patient was given intervenous injection of Lexiscan. Subsequently the patient was given intravenous injection of 26.4 mCi of technetium 99m tetrofosmin and the heart was imaged in multiple projections. Images were reconstructed in the axial, sagittal and coronal planes and in a 3- D format. The patient was unable to be positioned for the attenuation corrected images limiting the study. FINDINGS: There appears to be normal wall motion and myocardial thickening. The left ventricular ejection fraction was calculated to be 86%. Review of the images demonstrates normal distribution of radiopharmaceutical. There is no evidence for infarct or ischemia. IMPRESSION: NO EVIDENCE FOR INFARCT OR ISCHEMIA. ASSESSMENT: Low risk. Based on imaging criteria from ACC/AHA 2002 Guideline Update for the Management of Patients With Chronic Stable Angina Table 23. Noninvasive Risk Stratification. MTDD
[2016-09-02] MEDS ORDERED: cefTRIAXone VIAL(*) 1,000 MG in NS 0.9% 50 ML* 50 ML IVPB SCH (15:00)
[2016-09-02] MEDS ORDERED: Regadenoson* 0.4 MG/5 ML SYRINGE ONE (16:41)
--- NOTE | 2016-09-03 05:48 | DS ---
DISCHARGE SUMMARY: DATE OF ADMISSION: 09/01/16 DATE OF DISCHARGE: 09/02/16 PRIMARY CARE PROVIDER: Dr. Thea Kuo. PRINCIPAL DIAGNOSES: 1. Noncardiac left arm pain and shortness of breath. 2. Paranoid delusions likely secondary to urinary tract infection - resolved. SECONDARY DIAGNOSIS: Hyperlipidemia. DISCHARGE MEDICATIONS: 1. Aspirin 81 mg p.o. daily. 2. Remeron 15 mg p.o. q.h.s. 3. Cipro 250 mg p.o. b.i.d. x5 days. HOSPITAL COURSE: Ms. Barrientos is an 81-year-old female, who presented to the emergency room on 09/01/16 with complaints of left arm discomfort and shortness of breath. The patient was going to be admitted for an evaluation for an acute coronary syndrome when she suddenly decided that she was going to leave against medical advice. The patient became very paranoid while in the emergency room stating that if she were admitted to the hospital she would be found and killed. The patient clearly did not have capacity to make a decision to leave the hospital against medical advice at that time. She was admitted and when I informed her that she did not have capacity, she began to cooperate. The patient was found to have a probable urinary tract infection based on a markedly abnormal urinalysis obtained in the emergency room. The patient was admitted to rule out an acute coronary syndrome, which was done with serial troponins and EKGs. She underwent a nuclear stress test that revealed no evidence of ischemia or infarct. Of note, the patient was seen by Dr. Drew in the recent past where a nuclear stress test was recommended and this has now been completed. In addition to being ruled out for an acute coronary syndrome, the patient was found to have an E. coli urinary tract infection. She was started initially on ceftriaxone in the emergency room and subsequently changed over to Cipro 250 mg p.o. twice daily to complete 5 more days of therapy. While the patient did have paranoid delusions in the emergency room, these were revolved on the morning of discharge. I suspect she may have had a short-lived delirium related to the urinary tract infection. At this point, the patient is stable for discharge home. FOLLOWUP CONCERNS: The patient is being discharged home today, 09/02/16. She is to follow up with Dr. Thea Kuo in the next 5 to 7 days. ACTIVITY LEVEL: As tolerated. DIET: Low fat. CONDITION ON DISCHARGE: Stable. TIME SPENT: Twenty-five minutes was spent discharging this patient. CC: Dr. Thea Kuo; Dr. Drew* [id number]/[facility] #: [id number] MTDD
== END 2016-09-02 15:00 | disposition home or self-care (01) ==
LOC: ED 10:49 → MEDTELE 13:36
PROVIDERS: ADMIT Hospitalist; ATTEND Hospitalist
DX: M79.602 Pain in left arm (principal); R06.02 Shortness of breath; F22 Delusional disorders; N39.0 Urinary tract infection, site not specified; E78.5 Hyperlipidemia, unspecified; R94.31 Abnormal electrocardiogram [ECG] [EKG]; Z79.899 Other long term (current) drug therapy; Z88.0 Allergy status to penicillin; Z88.2 Allergy status to sulfonamides; Z88.1 Allergy status to other antibiotic agents; Z87.891 Personal history of nicotine dependence
CPT/HCPCS: 36415; 71010; 78452; 80053; 81003; 81015; 83605; 84484; 85025; 87040; 87077; 87086; 87186; 93005; 93017; 96365; 96372; 99283; A9270-GY; A9502; G0378; J0696; J1630; J1644; J2785

== ENCOUNTER 2017-12-04 09:59 | Emergency (ER) | payer MEDICARE, MEDICAID ==
[2017-12-04 10:23] VITALS: BP 120/103
[2017-12-04] MEDS ORDERED: Magnesium Hydroxide LIQ* 30 ML UDC PO ONE (11:25)
--- NOTE | 2017-12-04 11:50 | UC ---
Vandana Salvador Rebecca, scribed for Jatin Espinal MD on 12/04/17 at 1106 . Shortness of Breath HPI - HPI Summary HPI Summary: Pt is an 82 y/o F who presents to [facility] c/o SOB. Denies any chest pain. Per nurse's triage, sx began this morning at 0300 and again when she woke up. Additionally c/o fatigue, chills (yesterday) and chest heaviness. She feels some discomfort in her epigastric area. Denies any pain with breathing, edema, fever, nausea. Takes 81 mg ASA daily. Notes an episode of near syncope 2 weeks ago that she contributed to started a new refill of her Remeron during which she experienced dizziness and "things went round and round and black" which resolved after lying down. Confirms she has been feeling well and able to exercise since this episode. No PMHx asthma, confirms she has been eating and drinking well, last BM this morning at 0300. She did not eat anything since 4 pm yesterday. - History of Current Complaint [facility] SHORT OF BREATH Time Seen by Provider: 12/04/17 10:58 Hx Obtained From: Patient Onset/Duration: Still Present Dyspnea At: Rest Aggrevating Factors: Nothing Alleviating Factors: Nothing Associated Signs & Symptoms: Positive: Other - Fatigue, chest heaviness. Negative: Edema - Allergy/Home Medications Allergies/Adverse Reactions: Allergies Allergy/AdvReac Type Severity Reaction Status Date / Time erythromycin base Allergy Nausea Verified 12/04/17 10:35 Penicillins Allergy Rash Verified 12/04/17 10:35 Sulfa (Sulfonamide Allergy Vomiting Verified 12/04/17 10:35 Antibiotics) Home Medications: Home Medications Calcium Carbonate [Calcium] 500 mg PO DAILY 12/04/17 [History Confirmed 12/04/17 ] Rutin/Hesp/Bioflav/C/[id number] [Bioflex] 1 tab PO DAILY 12/04/17 [History Confirmed 12/04/17] Vitamin B Complex CAP* [B Complex CAP*] 1 cap PO DAILY 12/04/17 [History Confirmed 12/04/17] PMH/Surg Hx/FS Hx/Imm Hx Endocrine History: Other Other Endocrine History: NEGATIVE: DM Cardiovascular History: Other Other Cardiovascular History: NEGATIVE: HTN Other Respiratory History: negative Other GI/ History: negative Psychological History: Depression - Surgical History Surgical History: Yes Surgery Procedure, Year, and Place: BASAL CELL REMOVED - Family History Known Family History: Positive: Cardiac Disease, Other - Negative FMHx of breast CA. Gastric CA. - Social History Occupation: Retired Alcohol Use: Occasionally Alcohol Amount: 1 glass of wine [id number] Substance Use Type: None Smoking Status (MU): Former Smoker Type: Cigarettes Amount Used/How Often: 1 ppd Length of Time of Smoking/Using Tobacco: 30 years Have You Smoked in the Last Year: No Review of Systems Constitutional: Chills, Fatigue Skin: Negative Eyes: Negative ENT: Negative Respiratory: Shortness Of Breath Cardiovascular: Other - Chest heaviness Gastrointestinal: Other - discomfort in epigastric area. Genitourinary: Negative Motor: Negative Neurovascular: Negative Musculoskeletal: Negative Neurological: Negative Psychological: Negative All Other Systems Reviewed And Are Negative: Yes - Comments Additional Review of Systems Comments: NEGATIVE: Any pain with breathing, edema, fever, nausea Physical Exam Triage Information Reviewed: Yes Appearance: Well-Appearing, No Pain Distress Vital Signs: Initial Vital Signs Temp 97.7 F 12/04/17 10:19 Pulse 77 12/04/17 10:19 Resp 16 12/04/17 10:19 BP 120/103 12/04/17 10:19 Pulse Ox 99 12/04/17 10:19 Vital Signs Reviewed: Yes Eye Exam: Normal Eyes: Positive: Conjunctiva Clear ENT: Positive: Pharynx normal. Negative: Nasal congestion, Nasal drainage, Muffled voice, Hoarse voice Neck exam: Normal Neck: Positive: Supple, Nontender, No Lymphadenopathy Respiratory: Positive: Chest non-tender, Lungs clear, Normal breath sounds, No respiratory distress. Negative: Crackles, Rhonchi, Wheezing Cardiovascular Exam: Normal Cardiovascular: Positive: No Murmur, Pulses Normal Abdomen Description: Positive: No Organomegaly, Soft, Other: - mild tenserness in epigastric area.. Negative: Distended, Guarding Bowel Sounds: Positive: Present Musculoskeletal Exam: Normal Neurological Exam: Normal Neurological: Positive: Alert Psychological: Positive: Age Appropriate Behavior Skin Exam: Normal Skin: Negative: rashes Diagnostics - EKG Cardiac Rate: NL Cardiac Rhythm: Sinus: Normal ST Segment: Normal - borderline 1st degree av block , RI interval about 0.20 cm Shortness of Breath Dx - Course Course Of Treatment: During the visit today, we obtained EKG without any sigbnificant changes when compared to the prior EKG on 11/2016. We discussed the findings and further plan. I ordered her milk of magnesia to relieve her gastritis but she declined. She agreed to try omeprazole as had a reaction to zantac in past . I will prescribe omeprazaole. to the pharmacy . She was feeling better. Repeat BP was 124/66. Advised her to call 911 if her symptoms got worse . Patient expressed understanding . - Differential Dx/Diagnosis Provider Diagnoses: gasrtitis Discharge - Sign-Out/Discharge Documenting (check all that apply): Discharge/Admit/Transfer - Discharge Plan Condition: Stable Disposition: HOME Prescriptions: Omeprazole CAP* [Prilosec CAP* 20 MG] 20 mg PO DAILY 30 Days #30 cap. Patient Education Materials: Gastritis (ED), Gastroesophageal Reflux Disease in Children (ED) Referrals: Thea Kuo MD [Primary Care Provider] - Additional Instructions: Start taking omeprazole . It has been prescribed to the pharmacy . Follow up with your primary care doctor in 2 days. Return to Urgent care / ER or call 911 if symptoms get worse. - Billing Disposition and Condition Condition: STABLE Disposition: Home The documentation as recorded by the Vandana jones Rebecca accurately reflects the service I personally performed and the decisions made by me, Jatin Espinal MD.
== END 2017-12-04 11:36 | disposition home or self-care (01) ==
LOC: UCEAST 09:59
DX: K29.70 Gastritis, unspecified, without bleeding (principal); R53.83 Other fatigue; R07.89 Other chest pain; I44.0 Atrioventricular block, first degree; F32.9 Major depressive disorder, single episode, unspecified; Z85.828 Personal history of other malignant neoplasm of skin; Z88.1 Allergy status to other antibiotic agents; Z88.0 Allergy status to penicillin; Z88.2 Allergy status to sulfonamides; Z82.49 Family history of ischemic heart disease and other diseases of the circulatory system; Z87.891 Personal history of nicotine dependence
CPT/HCPCS: 93005; 99212; G0463

== ENCOUNTER 2024-01-19 10:25 | Observation (INO) ==
[2024-01-19 12:29] LABS: ABS Lymphocytes 0.7 10^3/uL (1.0-4.8); ABS Monocytes 0.5 10^3/uL (0.0-0.9); Eosinophil % 0.5 %; Hemoglobin 13.6 g/dL (11.5-14.3); Lymphocyte % 13.8 %; Mean Corpuscular Hgb Conc 33.1 g/dL (31-36); Mean Corpuscular Volume 93.8 fL (80-97); Mean Platelet Volume 6.8 fL (7.5-11.2); Platelet Count 198 10^3/uL (150-450); Red Blood Count 4.37 10^6/uL (3.63-4.92); Red Cell Distribution Width 13.2 % (12-17); White Blood Count 5.3 10^3/uL (3.8-11.8)
[2024-01-19 13:41] LABS: Albumin 4.5 g/dL (3.2-5.2); Albumin/Globulin Ratio 1.8 (1-3); Calcium 10.1 mg/dL (8.6-10.3); Creatinine, Serum 0.62 mg/dL (0.51-0.95); Globulin 2.5 g/dL (2-4); Magnesium 1.9 mg/dL (1.9-2.7); Potassium 3.8 mmol/L (3.5-5.0); Total Bilirubin 0.6 mg/dL (0.2-1.0); eGFR CKD-EPI 85.6 (>60)
[2024-01-19 14:29] LABS: High Sensitivity Troponin 1 Hr 4 pg/mL (<15)
[2024-01-19] MEDS: Iodixanol 320 (CONTRAST) 100 ML SDV IV ONE (15:00)
[2024-01-19] MEDS: Iohexol 350 (CONTRAST) 500 ML MDV IV ONE (15:01)
[2024-01-19] MEDS: Lactated Ringers 1000 ml BAG 1,000 ML IV SCH (23:47)
[2024-01-20 05:47] LABS: ABS Eosinophils 0.1 10^3/uL (0.0-0.5); ABS Lymphocytes 0.7 10^3/uL (1.0-4.8); ABS Monocytes 0.6 10^3/uL (0.0-0.9); ABS Neutrophils 4.3 10^3/uL (1.5-7.6); Eosinophil % 1.2 %; Hematocrit 36.3 % (35-45); Hemoglobin 11.9 g/dL (11.5-14.3); Lymphocyte % 12.9 %; Mean Corpuscular Hemoglobin 30.9 pg (27-33); Mean Corpuscular Hgb Conc 32.8 g/dL (31-36); Mean Corpuscular Volume 94.1 fL (80-97); Mean Platelet Volume 7.3 fL (7.5-11.2); Nucleated Red Blood Cells % 0.1 %/100WBC (0.0-0.8); Platelet Count 182 10^3/uL (150-450); Red Blood Count 3.86 10^6/uL (3.63-4.92); White Blood Count 5.7 10^3/uL (3.8-11.8)
[2024-01-20 06:52] LABS: Calcium 9.2 mg/dL (8.6-10.3); Creatinine, Serum 0.59 mg/dL (0.51-0.95); Magnesium 1.9 mg/dL (1.9-2.7); Potassium 3.9 mmol/L (3.5-5.0); eGFR CKD-EPI 86.6 (>60)
[2024-01-20 08:19] LABS: Urine Appearance Extra Turbid; Urine Bilirubin Negative (Negative); Urine Blood 1+ (Negative); Urine Glucose Negative (Negative); Urine Ketones Negative (Negative); Urine Nitrite 2+ (Negative); Urine Protein Trace (Negative); Urine Urobilinogen Negative (Negative)
[2024-01-20] MEDS: Sulfur Hexaflouride MICROSPHR 25 MG VIAL IV ONE (08:26)
[2024-01-20] MEDS: Calcium Citrate 200 mg TAB PO SCH (08:32)
[2024-01-20 08:49] LABS: Urine Bacteria 1+ /HPF (Absent); Urine Red Blood Cell 3+(>10/hpf) /HPF (0-Trace); Urine Squamous Epithelial Cell Present /HPF (Absent); Urine White Blood Cell 3+(>20/hpf) /HPF (0-Trace)
[2024-01-20 11:42] LABS: Urine Color Light-Yellow
[2024-01-20 14:16] VITALS: BP 119/68
[2024-01-20] MEDS: cefTRIAXone 1 gm/50 mL D5W 1 GM/50 ML BAG IV SCH (17:59)
== END 2024-01-20 16:30 | disposition home or self-care (01) ==
LOC: EDHOLD 10:25 → ED 10:25 → MEDTELE 20:30
PROVIDERS: ADMIT Student in an Organized Health Care Education/Training Program; ATTEND Student in an Organized Health Care Education/Training Program